=== PATIENT | female | born 1975 | race Caucasian/White ===

== ENCOUNTER 2025-08-18 13:15 | Emergency (ER) | payer OTHER ==
[2025-08-18 13:35] VITALS: RESP 20; TEMP 97; O2SAT 99
--- NOTE | 2025-08-18 13:56 | ERPHSYRPT ---
- History of Present Illness Patient Subjective Stated Complaint: patient twisted ankle at work today Triage Nursing Assessment: patient drove her to ED today she twisted ankle a couple weeks ago and then was at work today and twisted it again, left foot is swollen and painful to touch patient states keeps turning inward. pedal pulses present no open wound or areas noted, patient is alert nad oriented x3, able to ambualte by self. gait is somwhat unsteady for the foot/ankle injury. Physician History: Twisted left ankle, apparently she injured her left ankle several weeks ago and then she had a reoccurrence today, she heard a clicking sensation and that the ankle feels very unstable, no previous surgeries to that ankle Occurred: just prior to arrival Quality: constant Severity of Pain-Max: moderate Severity of Pain-Current: moderate Lower Extremities Pain: ankle: left Modifying Factors: Improves With: nothing Associated Symptoms: popping sensation Allergies/Adverse Reactions: No Known Drug Allergies Allergy (Unverified 05/11/25 08:50) Home Medications: Levothyroxine Sodium [Unithroid] 137 mcg PO DAILY 05/11/25 [History] Omeprazole Magnesium [Prilosec Otc] 20 mg PO DAILY 05/11/25 [History] Hx Tetanus, Diphtheria Vaccination/Date Given: Yes Hx Influenza Vaccination/Date Given: No Hx Pneumococcal Vaccination/Date Given: No Immunizations Up to Date: Yes Travel Risk - International Travel Have you traveled outside of the country in past 3 weeks: No - Emerging Infectious Disease Are you exhibiting symptoms associated with any current EIDs: No - Past Medical History Pertinent Past Medical History: Yes Endocrine Medical History: Hypothyroidism - Past Surgical History Past Surgical History: No - Female History Hx Now: No - Social History Smoking Status: Current every day smoker Exposure to second hand smoke: Yes Drug Use: none - Social Determinants of Health Will the patient participate in the screening: Yes Do you worry about a steady place to live?: No Do you have any problems with any of the following?: No known problems In the past 12 months,have you had to go without utilities?: No Transportation Issues: No Has anyone in your support network made you feel unsafe?: No Have you or anyone in your house had to go w/o enough food: No - Nursing Vital Signs Nursing Vital Signs: Initial Vital Signs Temperature 97 F 08/18/25 13:15 Pulse Rate 96 H 08/18/25 13:15 Respiratory Rate 20 08/18/25 13:15 Blood Pressure 109/82 08/18/25 13:15 O2 Sat by Pulse Oximetry 99 08/18/25 13:15 Pain Scale Pain Intensity 8 - Physical Exam Ankle Exam: left ankle: pain (Ankle), soft tissue tenderness (ankle), swelling (ankle) Neuro/Tendon Exam: normal sensation Mental Status Exam: alert, oriented x 3, cooperative Skin Exam: normal color, warm, dry SpO2 Interpretation: normal SpO2: 99 Ordered Tests: Active Orders 24 hr Category Date Time Status ANKLE (3 VIEWS) Stat Exams 08/18/25 13:33 Completed - Progress Progress Note: 08/18/25 14:27 Discussed x-ray results, she be placed in a walking boot, should be given a referral to podiatry - Departure Departure Disposition: Home Clinical Impression: Left ankle sprain Qualifiers: Encounter type: initial encounter Involved ligament of ankle: anterior talofibular ligament Qualified Code(s): S93.492A - Sprain of other ligament of left ankle, initial encounter Condition: Stable Critical Care Time: No Referrals: KAYLA ENRIQUE DPM [ACTIVE STAFF, PODIATRY] - Follow up with PCP 7 days Instructions: Ankle sprain - ED discharge instructions Additional Instructions: Ice 10 to 15 minutes 3-4 times a day, ibuprofen 2-3 tabs 3 times a day, follow- up with podiatry, give office call to set up appointment
[2025-08-18 14:06] VITALS: BP 110/63; PULSE 89
--- NOTE | 2025-08-18 14:09 | XRAY ---
Indication: Pain. Comparison: None 3 view left ankle demonstrates mild soft tissue swelling. No other bony, articular, or soft tissue abnormalities.
== END 2025-08-18 14:43 | disposition home or self-care (01) ==
LOC: ED 13:15
DX: S93.492A Sprain of other ligament of left ankle, initial encounter (principal); X50.0XXA Overexertion from strenuous movement or load, initial encounter; Z79.899 Other long term (current) drug therapy; Z72.0 Tobacco use